=== PATIENT | female | born 1955 ===

== ENCOUNTER → 2016-11-12 | Day surgery (SDC) | payer OTHER ==
[~2016-11-12] VITALS: Ht 167.6 cm; Wt 71.2 kg
[2016-11-12] VITALS (13 sets, daily range): BP systolic 123–142; BP diastolic 55–83; PULSE 71–80; RESP 13–22; O2SAT 95–98
[~2016-11-12] MED LIST: 0.9% Sodium Chloride 1,000 ML IV PRN; 0.9% Sodium Chloride 1,000 ML IV SCH; 0.9% Sodium Chloride 250 ML IV PRN; Atropine 1 mg/10 mL (Code) Syringe IVPUSH PRN; BUPR-97 PO; CANA300T PO; CHOL200047 PO; CYAN1TAB45 PO; CYCL1DRO OP; DIAZ5TAB3 PO; HYDROcodone-APAP 5-325 mg Tablet PO PRN; Heparin 1,000 Unit/mL 10 mL Inj ONE; Heparin 1,000 Units/500 mL NS Premix IV ONE; Heparin 10,000 Unit/1,000 mL NS Premix IV ONE; KRIL1CAP19 PO; LOSA100T29 PO; METF-496 PO; NAPR500T PO; NPH,100V10 SUBQ; OMEP40CA36 PO; Ondansetron 2 mg/mL 2 mL Inj IVPUSH PRN; QUET200T58 PO; UBID100C16 PO; ZOLP10TA5 PO; fentaNYL-PF 50 mCg/mL 2 mL Inj ONE
[2016-11-12 06:28] LABS: BASOPHILS % (AUTO) 0.2 % (0-3); EOSINOPHILS % (AUTO) 3.7 % (0-5); Mean Corpuscular Hemoglobin 31.3 pg (27.0-35.0); Mean Corpuscular Volume 85.5 fL (81-100); NEUTROPHILS % (AUTO) 45.9 % (40-74); Platelet Count 131 bil/L (150-400)
[2016-11-12 06:39] LABS: INR 1.12 ratio
--- NOTE | 2016-11-12 10:49 | CS94 ---
[place] [address] DIAGNOSTIC CARDIAC CATHETERIZATION PATIENT: KATHY WATSON : 1955 MR#: [id number] ADMIT: 11/12/2016 JOB ID: [id number] SERVICE DATE: 11/12/2016 INDICATION: Abnormal stress test. History of recurrent chest pains. Risk factors, history of hypertension, diabetes and hyperlipidemia. CONSENT: The patient was explained the risks, benefits and alternatives of the procedure. Informed signed consent was obtained and placed in the chart. DESCRIPTION OF PROCEDURE: The patient was brought to the catheterization table and placed on the catheterization table. Both groins were prepped and draped in the usual sterile manner. Lidocaine 1% was infiltrated in the right groin area to achieve topical anesthesia. Using a standard technique and with an access needle, anterior wall was entered. Using a standard modified Seldinger technique, a 5-Finnish arterial sheath was placed. Subsequently, FL4 catheter was advanced over the guidewire and placed in the ostium of the left main coronary artery. The patient has separate lumen for left circumflex and left anterior descending arteries. Coronary angiography was performed in standard views in multiple projections. FR4 catheter was used to engage the right coronary artery in multiple views. Single view of the right coronary artery was obtained, as it was a nondominant vessel. A pigtail catheter was advanced over the guidewire and placed in the left ventricle. Left ventricular hemodynamics were obtained. Left ventricular cineangiography was performed using 12 cc with total of 30 cc in the right anterior oblique view. A pullback maneuver was subsequently performed to assess for any gradient. No gradient was noted. Subsequently, right groin angiography was performed. The access to the right femoral artery was above the bifurcation. However, decision was made to remove the sheath and place manual pressure. No complications were noted. Patient was taken out of the catheterization laboratory in stable condition. FLUOROSCOPY TIME: 2.2 minutes. TOTAL CONTRAST USED: 70 cc. COMPLICATIONS: None. TOTAL BLOOD LOSS: Less than 10 cc. FINDINGS: LEFT VENTRICULAR HEMODYNAMICS: The left ventricular end-diastolic pressure was 20 mmHg. The left ventricular cineangiography revealed a hyperdynamic left ventricle, with ejection fraction more than 60%. CORONARY ANGIOGRAPHY: The left main coronary artery is a double-lumen vessel with a separate ostia of the left circumflex and left anterior descending arteries. The left circumflex coronary artery demonstrates mild luminal irregularities. The left anterior descending artery has mild luminal irregularities. It gives off a first diagonal branch, which is free of any significant disease. The mid LAD demonstrates luminal irregularity with very mild stenosis of 20% to 30%. The distal LAD demonstrates no significant disease. The left circumflex coronary artery is a dominant vessel, which gives off multiple obtuse marginal branches. It is free of any significant disease. The right coronary artery is a nondominant vessel with mild luminal irregularities noted. IMPRESSION: 1. Mild three-vessel coronary artery disease. 2. Normal hyperdynamic left ventricular systolic function. 3. Chest pain as reported by the patient is likely noncardiac. 4. Further medical management and risk modification recommended, as the patient has multiple coronary risk factors.
--- NOTE | 2016-11-12 12:28 | NUR ---
Report given to Rod Sandoval R.N. Pt has one more hour of bedrest time. [place] casanova intact.Dr Deng has updated patient and daughter.
--- NOTE | 2016-11-12 13:47 | NUR ---
Discharge Pt had stable recovery of heart cath in [place], VSS on RA, groin site soft non tender. Pt stated verbal understanding of discharge instructions regarding use of home medications, sign of worsening condition and follow up appointments. Pt and family left with personal belongings, discharge paperwork, IV dc'd intact at approximately 1345.
== END | disposition home or self-care (01) ==
LOC: SOUO 01:33
PROVIDERS: ATTEND Internal Medicine Cardiovascular Disease
DX: I25.10 Atherosclerotic heart disease of native coronary artery without angina pectoris (principal); R07.89 Other chest pain; E11.9 Type 2 diabetes mellitus without complications; Z79.84 Long term (current) use of oral hypoglycemic drugs; E78.00 Pure hypercholesterolemia, unspecified; G47.33 Obstructive sleep apnea (adult) (pediatric); I10 Essential (primary) hypertension; G25.81 Restless legs syndrome
CPT/HCPCS: 36415; 80048; 85025; 85610; 93005; 93458; 99152; 99153; C1769; J1644; J2250; J3010; Q9967